=== PATIENT | male | born 1960 ===

== ENCOUNTER → 2016-10-26 | Outpatient (REF) | payer BC ==
[~2016-10-26] MED LIST: CALC600T12 PO; FLC1T PO; HYDROXYSUT PO; LSNP10T PO; METH25VI11 IM; MULT-954 PO; OMG1KC PO; VITA-189 PO
[2016-10-26 10:32] LABS: BASOPHILS % (AUTO) 1 % (0-2); EOSINOPHILS # (AUTO) 0.3 10^3uL; EOSINOPHILS % (AUTO) 3 % (0-4); LYMPHOCYTES # (AUTO) 3.1 X10^3; MEAN CORPUSCULAR HGB CONC 33.3 g/dL (31.0-37.0); MEAN CORPUSCULAR VOLUME 96 FL (80-100); MEAN PLATELET VOLUME 11.4 FL (6.0-9.5); MONOCYTES # (AUTO) 0.5 X10^3; MONOCYTES % (AUTO) 6 % (3-11); NEUTROPHILS # (AUTO) 4.7 X10^3; NEUTROPHILS % (AUTO) 54 % (51-67); PLATELET COUNT 181 10^3uL (150-450); WHITE BLOOD COUNT 8.56 10^3uL (4.0-11.0)
[2016-10-26 10:38] LABS: MEAN CORPUSCULAR HEMOGLOBIN 31.9 PG (26.0-34.0)
[2016-10-26 10:39] LABS: BILIRUBIN,URINE Negative (Negative); CLARITY,URINE Clear; COLOR,URINE Yellow; GLUCOSE, URINE (UA) Negative (Negative); LEUKOCYTE ESTERASE ,URINE Negative (Negative); PH,URINE 6.5 (5.0 - 8.0); UROBILINOGEN,URINE 0.2 mg/dL (0.2-1.0)
[2016-10-26 11:16] LABS: ALBUMIN 4.6 g/dL (3.4-5.0); ANION GAP 15.3 MEQ/L (3-15); CALCULATED IONIZED CALCIUM 4.3 mg/dL (3.8-4.6); TOTAL PROTEIN 7.5 g/dL (6.4-8.5)
[2016-10-26 15:34] LABS: IRON 81 ug/dL (65-175)
== END ==
LOC: LAB 10:12
PROVIDERS: ATTEND Physician Assistant Surgical
DX: R53.83 Other fatigue (principal); Z13.6 Encounter for screening for cardiovascular disorders
CPT/HCPCS: 80053; 80061; 81003; 82728; 83540; 84443; 85025

== ENCOUNTER → 2016-10-26 | Outpatient (CLI) | payer BC | LOC: RT 10:40 | PROVIDERS: ATTEND Physician Assistant Surgical | DX: R00.2 Palpitations (principal) | CPT/HCPCS: 93225 ==